=== PATIENT | male | born 1975 | race Caucasian/White ===

== ENCOUNTER 2016-08-22 09:32 | Emergency (ER) | payer BC ==
[2016-08-22 10:02] VITALS: BP 125/72
--- NOTE | 2016-08-22 10:05 | UC ---
Throat Pain/Nasal Jak HPI - HPI Summary HPI Summary: Patient presents to with CC of nasal congestion, sinus discomfort, spastic cough and general malaise x 4 days. He states he has been working around bird droppings and recently noticed the worsening symptoms. Denies previous sinus infections or allergies. He notes to 1x episode of PNA but did not have a severe cough. Temp highest at 99.3. Otherwise healthy. Non-smoker. Endorses chest pain with cough, but denies at baseline or otherwise. Denies SOB or difficulty breathing, odynophagia, dysphagia, ear pain or eye pain. Denies JEAN-BAPTISTE, neck stiffness or photophobia. Denies sick contacts or travel. - History of Current Complaint Chief Complaint: UCRespiratory Stated Complaint: COUGH,SINUS,EAR PAIN Time Seen by Provider: 08/22/16 09:44 Hx Obtained From: Patient Onset/Duration: Sudden Onset Severity: Moderate Pain Intensity: 5 Pain Scale Used: 0-10 Numeric Cough: Productive Associated Signs & Symptoms: Positive: Sinus Discomfort, Nasal Discharge - Epiglottits Risk Factors Epiglottis Risk Factors: Negative - Allergies/Home Medications Allergies/Adverse Reactions: Allergies Allergy/AdvReac Type Severity Reaction Status Date / Time No Known Allergies Allergy Verified 08/22/16 09:40 Home Medications: Home Medications Pseudoephedrine-Guaifenesin [Mucinex D Maximum Strengt 120-1200 mg] 1 tab PO ONCE 08/22/16 [History Confirmed 08/22/16] PMH/Surg Hx/FS Hx/Imm Hx Previously Healthy: Yes - Surgical History Surgical History: None - Social History Occupation: Employed Full-time Lives: With Family Alcohol Use: Occasionally Alcohol Amount: 5 beers Substance Use Type: None Smoking Status (MU): Former Smoker Amount Used/How Often: 2 cans/week Review of Systems Constitutional: Negative Eyes: Negative ENT: Nasal Discharge, Sinus Congestion, Sinus Pain/Tenderness Respiratory: Cough Cardiovascular: Negative Neurovascular: Negative Musculoskeletal: Negative Neurological: Negative Psychological: Negative All Other Systems Reviewed And Are Negative: Yes Physical Exam Triage Information Reviewed: Yes Appearance: Well-Appearing, No Pain Distress, Well-Nourished Vital Signs: Initial Vital Signs Temp 99.2 F 08/22/16 09:34 Pulse 83 08/22/16 09:34 Resp 18 08/22/16 09:34 BP 125/72 08/22/16 09:34 Pulse Ox 98 08/22/16 09:34 Vital Signs Reviewed: Yes Eye Exam: Normal Eyes: Positive: Conjunctiva Clear ENT: Positive: Pharynx normal, Nasal congestion, Nasal drainage, Other: - pain on percussion of maxillary sinus Neck exam: Normal Neck: Positive: Supple, No Lymphadenopathy Respiratory Exam: Normal Respiratory: Positive: Chest non-tender Cardiovascular Exam: Normal Cardiovascular: Positive: RRR Musculoskeletal Exam: Normal Musculoskeletal: Positive: Strength Intact Neurological Exam: Normal Psychological Exam: Normal Psychological: Positive: Normal Response To Family Skin Exam: Normal Throat Pain/Nasal Course/Dx - Course Course Of Treatment: Patient presents with cough with production, sinus pressure and pain and congestion x 4 days. Denies allergies. Mucinex without relief. PE reveals pain on percussion of maxillary sinus, lungs CTA. Spastic cough noted. Prescriptions given for robitussin with codeine, flonase and augmentin for probable sinus infection. Patient OK with follow up and discharge. Medications reviewed with patient. - Differential Dx/Diagnosis Differential Diagnosis/HQI/PQRI: Sinusitis, URI, Other - cough Provider Diagnoses: Cough; Sinusitis Discharge - Discharge Plan Condition: Stable Disposition: HOME Prescriptions: Amoxicillin/Clavulanate TAB* [Augmentin TAB 875*] 875 mg PO BID #10 tab Fluticasone NASAL SPRAY 50MCG* [Flonase NASAL SPRAY 50MCG*] 2 spray BOTH NARES DAILY #1 btl guaiFENesin/CODIEN 100MG-10MG* [Robitussin AC 100Mg-10Mg*] 10 ml PO TID #120 udc MDD 10 Patient Education Materials: Sinusitis (ED) Referrals: No Primary Care Phys,NOPCP [Primary Care Provider] - Additional Instructions: Follow up with PCP Robitussin with codeine for cough up to three times daily Do not drive with this medication as discussed Augmentin twice daily for 5 days Do not miss any dose of antibiotic. Flonase steroid nasal spray twice daily in each nare For any worsening symptoms, return to or go to the ED immediately.
== END 2016-08-22 10:03 | disposition home or self-care (01) ==
LOC: UCCORT 09:32
DX: R05 Cough (principal); J32.9 Chronic sinusitis, unspecified; Z87.891 Personal history of nicotine dependence
CPT/HCPCS: 99212; G0463

== ENCOUNTER 2019-01-19 06:10 | Observation (INO) | payer BC ==
[2019-01-19] MEDS ORDERED: NS 0.9% 1000 ML** 1,000 ML IV ONE (06:41)
[2019-01-19] MEDS ORDERED: Ketorolac INJ* 30 MG/ML 1 ML VIAL IV PUSH ONE (06:41)
--- NOTE | 2019-01-19 06:44 | ED ---
GI/ HPI - HPI Summary HPI Summary: 43 year old male presents with right sided abdominal pain today. He states that it woke up out of his sleep. pain is on right side abd. He states that he had flank pain but it has since resolved. Does have family history of gallbladder issues. He admits to nausea and vomiting. He states the pain is a waxing waning. Had diarrhea earlier today. No urinary symptoms. No hematuria. No chest pain or shortness breath. He has no medical conditions. - History of Current Complaint Chief Complaint: EDAbdPain Time Seen by Provider: 01/19/19 06:26 Stated Complaint: GALLBLADDER PROB PER PT Pain Intensity: 6 - Allergy/Home Medications Allergies/Adverse Reactions: Allergies Allergy/AdvReac Type Severity Reaction Status Date / Time No Known Allergies Allergy Verified 01/19/19 06:14 Home Medications: Home Medications Testosterone 1 applic TOPICAL DAILY 01/19/19 [History Confirmed 01/19/19] PMH/Surg Hx/FS Hx/Imm Hx Endocrine/Hematology History: Denies: Hx Anticoagulant Therapy Respiratory History: Denies: Hx Asthma Infectious Disease History: No Infectious Disease History: Denies: Traveled Outside the [place] in Last 30 Days - Family History Known Family History: Positive: Non-Contributory - Social History Alcohol Use: Weekly Alcohol Amount: 5 beers Substance Use Type: Reports: None Smoking Status (MU): Former Smoker Amount Used/How Often: 2 cans/week Review of Systems Negative: Fever Negative: Chest Pain Negative: Shortness Of Breath Positive: Abdominal Pain, Vomiting, Diarrhea, Nausea All Other Systems Reviewed And Are Negative: Yes Physical Exam Triage Information Reviewed: Yes Vital Signs On Initial Exam: Initial Vitals Temp Pulse Resp BP Pulse Ox 96.7 F 73 16 137/81 97 01/19/19 06:10 01/19/19 06:10 01/19/19 06:10 01/19/19 06:10 01/19/19 06:10 Vital Signs Reviewed: Yes Appearance: Positive: Well-Appearing Skin: Positive: Warm, Dry Head/Face: Positive: Normal Head/Face Inspection Eyes: Positive: Normal, Conjunctiva Clear ENT: Positive: Pharynx normal Respiratory/Lung Sounds: Positive: Clear to Auscultation, Breath Sounds Present Cardiovascular: Positive: Normal, RRR Abdomen Description: Positive: Soft, Other: - tenderness RUQ and mild tenderness RLQ. Negative: CVA Tenderness (R) Bowel Sounds: Positive: Present Musculoskeletal: Positive: Normal Neurological: Positive: Normal Psychiatric: Positive: Normal Procedures - Sedation Patient Received Moderate/Deep Sedation with Procedure: No Diagnostics - Vital Signs Vital Signs Temp Pulse Resp BP Pulse Ox 01/19/19 06:10 96.7 F 73 16 137/81 97 - Laboratory Result Diagrams: 01/19/19 06:37 01/19/19 06:37 Lab Statement: Any lab studies that have been ordered have been reviewed, and results considered in the medical decision making process. - CT abd CT Interpretation Completed By: Radiologist Summary of CT Findings: IMPRESSION: 1. ACUTE APPENDICITIS. 2. NO HYDRONEPHROSIS OR NEPHROLITHIASIS. 3. HEPATOMEGALY WITH FATTY INFILTRATION OF THE LIVER. - EKG No standard instances Cardiac Rate: NL EKG Rhythm: Sinus Rhythm EKG Comparison: No Significant Change Summary of EKG Findings: sinus rhythm,PVC Re-Evaluation - Re-Evaluation First Eval Re-Evaluation Time: 09:06 Change: Improved Comment: feeling better, pain is now more localized to RLQ GIGU Course/Dx - Course Course Of Treatment: 43 year old male presents with abdominal pain today. He states that is started in his right flank and now rates the right upper quadrant. Does have family history of gallbladder issues. He admits to nausea and vomiting. He states the pain is a waxing waning. Had diarrhea earlier today. No urinary symptoms. No hematuria. No chest pain or shortness breath. He has no medical conditions. On exam tenderness over RLQ and right upper quadrant. wbc normal. lfts normal. troponin zero. EKG shows sinus rhythm. CT shows appendicits. discussed case with dr ojseph who will see patient. - Diagnoses Differential Diagnoses - Male: Appendicitis, Gall Bladder Disease, Ureteral Calculi, Urinary Tract Infection Provider Diagnoses: Appendicitis Discharge ED - Sign-Out/Discharge Documenting (check all that apply): Patient Departure - Discharge Plan Condition: Stable Disposition: ADMITTED TO [facility] Referrals: No Primary Care Phys,NOPCP [Primary Care Provider] - - Billing Disposition and Condition Condition: STABLE Disposition: Admitted to [facility]
[2019-01-19 07:10] LABS: Troponin I 0.01 ng/mL (<0.03)
[2019-01-19 07:12] LABS: ALT 32 U/L (7-52); AST 30 U/L (13-39); Albumin 4.8 g/dL (3.2-5.2); Albumin/Globulin Ratio 1.9 (1-3); Alkaline Phosphatase 69 U/L (34-104); Amylase 26 U/L (29-103); Anion Gap 5 mmol/L (2-11); BUN/Creatinine Ratio 15.5 (8-20); Blood Urea Nitrogen 18 mg/dL (6-24); C Reactive Protein 3.27 mg/L (<8.01); CO2 Carbon Dioxide 26 mmol/L (22-32); Calcium 9.3 mg/dL (8.6-10.3); Chloride 106 mmol/L (101-111); EGFR African American 83.1 (>60); EGFR Non-African American 68.7 (>60); Globulin 2.5 g/dL (2-4); Glucose 120 mg/dL (70-100); Potassium 4.1 mmol/L (3.5-5.0); Sodium 137 mmol/L (135-145); Total Protein 7.3 g/dL (6.4-8.9)
[2019-01-19 07:14] LABS: ABS Lymphocytes 0.8 10^3/ul (1.0-4.8); ABS Monocytes 0.5 10^3/ul (0-0.8); ABS Neutrophils 8.3 10^3/ul (1.5-7.7); Eosinophil % 0.5 %; Hematocrit 43 % (42-52); Hemoglobin 15.3 g/dL (14.0-18.0); Mean Corpuscular HGB Conc 36 g/dL (31-36); Mean Corpuscular Hemoglobin 33 pg (27-31); Mean Corpuscular Volume 93 fL (80-94); Mean Platelet Volume 8.2 fL (7.4-10.4); Platelet Count 144 10^3/uL (150-450); Red Cell Distribution Width 13 % (10-15); White Blood Count 9.7 10^3/uL (3.5-10.8)
[2019-01-19] MEDS ORDERED: Piperacillin/Tazobac ADVAN(*) 3.375 GM in NS 0.9% 100 ML* 100 ML IVPB ONE (09:07)
--- NOTE | 2019-01-19 11:03 | HP ---
H&P (Free Text) History and Physical: CC: RLQ abdominal pain HPI: Mr Mcbride is a 43 yo man previously healthy who presents to the ED with right- sided abdominal pain. The pain woke him up from sleep about 2AM today and was associated with nausea. He also had multiple bowel movements this morning. He was about to go to work but experienced severe pain when he tried to get into his truck. He denies fevers or chills. The pain is tolerable now and only bothers him when someone pushes on his abdomen or when he moves. He received toradol and Zosyn in the ED. PAST MEDICAL HISTORY: Low testosterone PAST SURGICAL HISTORY: None Home Medications Medication Instructions Recorded Confirmed Type Testosterone 1 applic TOPICAL DAILY 01/19/19 01/19/19 History Allergies No Known Allergies Allergy (Verified 01/19/19 06:14) FAMILY HISTORY: Parents and siblings are healthy. Colon cancer in great- grandmother in her 90s. SOCIAL HISTORY: Denies smoking, quit at age 26. Drinks no more than 1-2 drinks weekly. Denies recreational drug use. 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 PHYSICAL EXAM: Temp Pulse Resp BP Pulse Ox 97.8 F 53 16 120/79 96 01/19/19 09:08 01/19/19 08:50 01/19/19 06:10 01/19/19 08:50 01/19/19 08:50 General: No acute distress. Sitting in bed comfortably. HEENT: head atraumatic, normocephalic. EOMI. Moist mucous membranes. CV: Regular rate and rhythm. Chest: Clear to auscultation bilaterally Abdomen: Soft, obese. Tenderness to palpation in RLQ. No rebound or guarding. Positive psoas sign. Extremities: warm, well-perfused. No pedal edema Skin: Intact, no lesions. Neuro: Alert and oriented x3. Laboratory Results - last 24 hr 01/19/19 01/19/19 06:37 06:37 WBC 9.7 RBC 4.60 Hgb 15.3 Hct 43 MCV 93 MCH 33 H MCHC 36 RDW 13 Plt Count 144 L MPV 8.2 Neut % (Auto) 86.1 Lymph % (Auto) 8.0 [place] % (Auto) 5.2 Eos % (Auto) 0.5 Baso % (Auto) 0.2 Absolute Neuts (auto) 8.3 H Absolute Lymphs (auto) 0.8 L Absolute Monos (auto) 0.5 Absolute Eos (auto) 0.0 Absolute Basos (auto) 0.0 Absolute Nucleated RBC 0.0 Nucleated RBC % 0.0 Sodium 137 Potassium 4.1 Chloride 106 Carbon Dioxide 26 Anion Gap 5 BUN 18 Creatinine 1.16 Est GFR ( Amer) 83.1 Est GFR (Non-Af Amer) 68.7 BUN/Creatinine Ratio 15.5 Glucose 120 H Calcium 9.3 Total Bilirubin 0.70 AST 30 ALT 32 Alkaline Phosphatase 69 Troponin I 0.01 C-Reactive Protein 3.27 Total Protein 7.3 Albumin 4.8 Globulin 2.5 Albumin/Globulin Ratio 1.9 Amylase 26 L Lipase < [address] of [address] Findings [abd] IMPRESSION: 1. ACUTE APPENDICITIS. 2. NO HYDRONEPHROSIS OR NEPHROLITHIASIS. 3. HEPATOMEGALY WITH FATTY INFILTRATION OF THE LIVER. Summary of EKG Findings [No sinus rhythm,PVC standard instances] A&P 43M with acute appendicitis. -Discussed benefits and risks of surgery, including but not limited to bleeding , infection, bowel injury. Also discussed medical management and risk of failure and recurrence. Patient agrees to proceed with laparoscopic appendectomy. -Continue Zosyn. -NPO. IVF. -Dilaudid prn. Zofran prn. -Activity as tolerated.
[2019-01-19] MEDS ORDERED: HYDROmorphone INJ1* 1 MG/ML SYRINGE IV SLOW PU PRN (11:09)
[2019-01-19] MEDS ORDERED: Ondansetron INJ* 2 MG/ML VIAL IV PRN (11:09)
[2019-01-19] MEDS ORDERED: NS 0.9% 1000 ML** 1,000 ML IV SCH (11:15)
[2019-01-19] MEDS ORDERED: HYDROmorphone INJ* 0.5 MG/0.5 ML SYRINGE IV SLOW PU PRN (14:22)
[2019-01-19] MEDS ORDERED: Piperacillin/Tazobactam VIAL*) 3.375 GM in NS 0.9% 100 ML* 100 ML IVPB SCH (17:00)
[2019-01-19] MEDS ORDERED: Bupivacaine 0.25% SDV PF* 10 ML VIAL INJ ONE (17:59)
[2019-01-19] MEDS ORDERED: Sodium Citrate/Citric Acid* 15 ML UDC ONE (18:06)
[2019-01-19] MEDS ORDERED: Naloxone* 0.4 MG/ML 1 ML VIAL IV PRN (18:31)
[2019-01-19] MEDS ORDERED: fentaNYL* 50 MCG/ML 2 ML VIAL (100 MCG VIAL) IV PRN (18:31)
[2019-01-19] MEDS ORDERED: Acetaminophen IV 1GM/100ML * 1,000 MG/100 ML VIAL IVPB ONE (18:31)
[2019-01-19] MEDS ORDERED: Lidocaine 2% PF * 5 ML VIAL ONE (18:41)
[2019-01-19] MEDS ORDERED: fentaNYL* 50 MCG/ML 2 ML VIAL (100 MCG VIAL) ONE (18:41)
[2019-01-19] MEDS ORDERED: Propofol* 10 MG/ML 20 ML BTL ONE ×2 (18:41→19:15)
[2019-01-19] MEDS ORDERED: Rocuronium* 10 MG/ML VIAL ONE ×2 (18:42→19:33)
[2019-01-19] MEDS ORDERED: Sugammadex * 200 MG/2 ML VIAL IV PUSH ONE ×2 (19:33→19:55)
[2019-01-19] MEDS ORDERED: Acetaminophen IV 1GM/100ML * 100 ML ONE (20:20)
[2019-01-19 21:05] VITALS: BP 129/77
--- NOTE | 2019-01-20 11:42 | DS ---
ADMIT DATE: 01/19/19 DISCHARGE DATE: 01/19/19 REASON FOR ADMISSION: Acute appendicitis PROCEDURES: Laparoscopic appendectomy CONDITION AT TIME OF DISCHARGE: Stable HOSPITAL COURSE: Mr Mcbride is a 43 year old man who presented to the ED with RLQ abdominal pain. White blood cell count was normal, but physical exam and CT scan suggested acute appendicitis. He was started on Zosyn and kept NPO. He was brought to the OR on 01/19/19 for laparoscopic appendectomy. He was monitored in the PACU and was discharged home after meeting the usual criteria. PHYSICAL FINDINGS: Tenderness to palpation of RLQ abdomen LABORATORY FINDINGS: WBC 9.[address] Findings [abd] IMPRESSION: 1. ACUTE APPENDICITIS. 2. NO HYDRONEPHROSIS OR NEPHROLITHIASIS. 3. HEPATOMEGALY WITH FATTY INFILTRATION OF THE LIVER. Summary of EKG Findings [No sinus rhythm,PVC standard instances] DISPOSITION: Home DISCHARGE INSTRUCTIONS FOLLOWING APPENDECTOMY OFFICE VISIT: Call the office at [phone] for an appointment as soon as possible after discharge. You should be seen in the office in 1 week. DIET: Resume your regular diet. No restrictions are necessary in regard to your surgery. WOUND CARE: * Shower daily. Wash over incision with regular soap and water. Sit-down baths should be avoided for at least a week. * Leave the skin tapes (steri-strips) on until they begin to loosen and curl on the ends. Then you may gently ease the tapes off, starting at both ends and working toward the incision. * Wear a light gauze bandage over the incision if your clothing irritates the incision. * If the incision is draining, wear a bulkier sterile bandage and change it at least twice daily. As the surgical wound heals, there is likely to be slight swelling, redness, or bruising of the skin. A few days later, the incision may feel lumpy. All of these are normal, and all of them will disappear in time. PLEASE CALL THE OFFICE SOON POSSIBLE IF ANY OF THE FOLLOWING OCCUR: * Sharp increase in pain, redness or swelling of the incision. * Presence of any wound drainage: yellow fluid, bright red blood, or pus (cream- colored drainage). * Fever over 101 degrees orally. ACTIVITY: * Light activity is allowed. * Gradually increase activity within your tolerance. * Walking is the best exercise for you at this time. You may build up to one or two miles a day during the first few weeks following surgery. * Climbing stairs is fine, but go slowly at first. * Do not lift anything heavier than 10 pounds for 1 week. This is an estimation ; therefore, use your judgment. * Do not drive a car until all of your pain is gone and your energy level is normal, or until your first office visit, whichever comes last. PAIN MEDICATION CAUTION: Your pain medicine may contain a narcotic (i.e. Codeine ). This can cause drowsiness and constipation. Do not drink alcohol, drive a car or work around machines while taking the medicine. Drink plenty of liquids to help prevent constipation. You may use Milk of Magnesia to relieve constipation. MEDICATIONS: Please see Reconciliation Form for usual medications IF YOU HAVE ANY QUESTIONS OR PROBLEMS PLEASE FEEL FREE TO CALL THE OFFICE AT [phone] TO TALK WITH ONE OF OUR DOCTORS OR NURSES. OUR ANSWERING SERVICE IS AVAILABLE 24 HOURS/DAY.
--- NOTE | 2019-01-20 12:53 | OP ---
DATE OF OPERATION: 01/19/19 - ROOM #332 DATE OF : 75 SURGEON: Corry Hoang MD GUIDE CHANGER: Hank Avina MD ANESTHESIA: General. PRE-OP DIAGNOSIS: Acute appendicitis. POST-OP DIAGNOSIS: Acute appendicitis. OPERATIVE PROCEDURE: Laparoscopic appendectomy. ESTIMATED BLOOD LOSS: Minimal. FINDINGS: Inflamed appendix. No evidence of rupture. INDICATIONS: Edmundo Mcbride is an otherwise healthy 43-year-old man, who presented to the ED with abdominal pain that started early in the morning. His white count was normal; however, his physical exam and CT scan suggested acute appendicitis. We discussed operative management versus medical management. He understood that with medical management there is a risk for failure or recurrence. Risks of surgery were discussed including, but not limited to bleeding, infection, or bowel injury. The patient agreed to proceed with surgery. DESCRIPTION OF PROCEDURE: The patient was brought to the OR and placed in the supine position on the OR table. He received Zosyn on the floor just prior to going to the preoperative holding area. SCDs were placed. General anesthesia was administered. The abdomen was prepped and draped in the usual sterile fashion. A time-out confirming the patient's name, date of , and procedure was called. A curvilinear infraumbilical incision was made and carried down to the fascia using blunt and sharp dissection. Two Kurtis clamps were used to elevate the fascia, which was sharply incised transversely. Using blunt dissection, the peritoneum was entered. A Jennifer trocar was placed through the incision. Pneumoperitoneum was achieved to 15 mmHg. A 5 mm trocar was placed in the left lower quadrant under direct visualization. Another 5 mm trocar was placed in the supraumbilical area under direct visualization. On exam of the abdomen, it appeared that the appendix was retrocecal. There was a minimal amount of murky fluid around the appendix. The base could be easily identified. A window in the mesentery was created using blunt dissection. A 45 mm hackett Jobos staple load was used to divide the appendix at the base. A LigaSure was then used to divide the mesoappendix and dissect the appendix away from the surrounding inflamed tissue. The appendix was placed in a specimen bag and passed off the field for pathology. The staple line was inspected and appeared intact. The surgical field had good hemostasis. The 5 mm trocars were removed under direct visualization. The Jennifer trocar was removed. The fascia was closed with 0 Vicryl [id number] stitch. The skin was then closed with a running 4-0 Monocryl. The 5 mm trocar sites were closed with 4-0 Monocryl. The incisions were injected with 0.25% Marcaine. Steri-Strips were placed over the incisions. The needle and sponge counts were correct. The patient was extubated and brought to Recovery in stable condition. [id number]/[facility] #: [id number] [facility] HOSPITALNora
== END 2019-01-19 21:10 | disposition home or self-care (01) ==
LOC: ED 06:10 → SSU 11:09
PROVIDERS: ADMIT Surgery Surgical Critical Care; ATTEND Surgery Surgical Critical Care
DX: K35.80 Unspecified acute appendicitis (principal); R10.31 Right lower quadrant pain; R11.2 Nausea with vomiting, unspecified; R19.7 Diarrhea, unspecified; Z87.891 Personal history of nicotine dependence; E29.1 Testicular hypofunction; Z79.899 Other long term (current) drug therapy
CPT/HCPCS: 36415; 74176; 80053; 82150; 83690; 84484; 85025; 86140; 93005; 96365; 96375; 99283; A9270-GY; C1776; G0378; J1885; J2543; J2704; J3010; J3490